=== PATIENT | female | born 1950 | race Caucasian/White ===

== ENCOUNTER 2020-01-01 11:20 | Observation (INO) | payer OTHER, MEDICARE ==
[2019-12-25 12:09] LABS: URINE BILIRUBIN NEGATIVE (Negative); URINE BLOOD NEGATIVE (Negative); URINE CLARITY CLEAR; URINE COLOR YELLOW; URINE GLUCOSE-RANDOM* NEGATIVE (Negative); URINE KETONES NEGATIVE (Negative); URINE LEUKOCYTES-REFLEX NEGATIVE (Negative); URINE NITRITE-REFLEX NEGATIVE (Negative); URINE PROTEIN (DIPSTICK) NEGATIVE (Negative); URINE UROBILINOGEN 0.2 E.U./dl (0.2-1.0)
[2019-12-25 12:12] LABS: HEMATOCRIT 40.1 % (37.0-47.0); HEMOGLOBIN 13.4 gm/dL (12.0-15.0); MCH 28.2 pg (26.0-34.0); MCHC 33.4 g/dL (28.0-37.0); MCV 84.3 fL (80.0-100.0); RBC 4.76 mil/uL (4.20-5.00); RDW 14.8 % (10.5-14.5); WBC 8.5 thou/uL (4.0-11.0)
[2019-12-25 12:25] LABS: ALBUMIN 3.9 g/dL (3.4-5.0); CALCIUM 8.7 mg/dL (8.5-10.1); CREATININE 1.2 mg/dL (0.6-1.0); POTASSIUM 4.6 mmol/L (3.5-5.1)
[2019-12-25 12:27] LABS: PROTIME 10.1 Seconds (9.3-11.4)
[2019-12-26 03:08] LABS: GLYCOHEMOGLOBIN (HGB A1C) 5.6 % (4.8-5.6)
--- NOTE | 2019-12-26 08:48 | EKG ---
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
[~2020-01-01] VITALS: Ht 157.5 cm; Wt 96.2 kg
[~2020-01-01 11:20] MED LIST: ACCOLATE20 MG PO; ALAWAY10 ML OPHTHALMIC; ALPRAZOLAM 0.0.25 MG PO; ASPIR 8181 M1 PO; CALCIUM 500 +1 EACH PO; CELEXA 20 MG TA20 MG PO; CONTRAVE ER 8-1 EACH PO; CRESTOR10 MG PO; LISINOPRIL-HCT1 EAC2 PO; MELOXICAM15 MG PO; METFORMIN HCL1000 MG PO; PROAIR HFA8.5 GM INH; ZYRTEC10 M4 PO
[2020-01-01 14:58] VITALS: BP 184/60
[2020-01-01 18:40] VITALS: BP 153/67
--- NOTE | 2020-01-01 18:46 | NUR ---
ASSUMED CARE OF THE PT AT 181. PT IS ON 2.0 L NC. L WRIST IV DRY AND INTACT. NO C/O PAIN SINCE PTS BEEN ON THE FLOOR. FALL PRECAUTIONS IN PLACE, BED IN THE LOWEST POSITION AND CALL LIGHT IS WITHIN REACH. WILL CONTINUE TO MONITOR THE PT.
[2020-01-01 19:04] VITALS: BP 148/73
[2020-01-01 20:00] VITALS: BP 148/73
--- NOTE | 2020-01-01 20:01 | NUR ---
PATIENT ADMITTED FROM OR WITH RIGHT TOTAL KNEE, ELIAN DRESSING, POLAR PACK, AND SCD'S IN PLACE. PATIENT DENIES PAIN AT THIS TIME. LEFT HAND IV WITH IV FLUIDS STARTED. PATIENT GIVEN BOX LUNCH AND CRACKERS, NO C/O NAUSEA AT THIS TIME. DAUGHTER CALLED AND UPDATE GIVEN BY ELVI/CIERA. WILL REPORT OFF TO KAYLI/CIERA.
[2020-01-02] VITALS: BP 136/70
[2020-01-02 03:45] VITALS: BP 136/70
--- NOTE | 2020-01-02 04:58 | NUR ---
ASSESSMENT: PT REMAIN ALERT AND ORIENT TIMES FOUR. STATES THAT HER RIGHT KNEE FEELS COMFORTABLE THUS FAR, NO REQUEST FOR PAIN MEDICATION. VSS, AFEBRILE. POLAR PK AND SCDS INTACT. NO FURTHER QUESTIONS. D5 0.45 NS TIMES 2 LITERS ONLY. PT IS ON 2ND LITER, MAY DC WHEN COMPLETED. GOOD PROGRESS TOWARDS DC GOALS, WILL CONTINUE TO MONITOR.
[2020-01-02 06:04] LABS: HEMATOCRIT 36.3 % (37.0-47.0); HEMOGLOBIN 11.9 gm/dL (12.0-15.0); MCH 27.9 pg (26.0-34.0); MCHC 32.7 g/dL (28.0-37.0); MCV 85.2 fL (80.0-100.0); RBC 4.26 mil/uL (4.20-5.00); RDW 14.4 % (10.5-14.5); WBC 14.4 thou/uL (4.0-11.0)
[2020-01-02 07:35] VITALS: BP 128/52
--- NOTE | 2020-01-02 13:18 | NUR ---
assessment: CM REVIEWED CHART AND SPOKE WITH PATIENT. PT IS ALERT AND ORIENTED X4. PT IS S/P RIGHT TKA. PT REPORTS SHE LIVES ALONE IN A HOUSE BUT HER 91 YR OLD MOTHER IS STAYING WITH HER AT THE TIME. PT REPORTS SHE HAS TWO STEPS TO ENTER THE HOME WITH A HANDRAIL BUT NO STEPS ONCE SHE IS INSIDE. PT REPORTS THAT SHE ALREADY HAS OUTPATIENT THERAPY SET UP AT [facility]. PHYSICAL THERAPY HAS BEEN WORKING WITH PATIENT AND SHE HAS BEEN DOING WELL BUT IS NEEDING A ROLLER WALKER FOR HOME. CM SPOKE WITH PT AND SHE HAS NO PREFERENCE OF [employer]. CM NOTIFIED [facility] WHO STATES THEY CAN PROVIDE PATIENT WITH A WALKER AND WILL DELIVER IT TO HER TODAY. PT REPORTS NO FURTHER NEEDS FROM [facility].
[2020-01-02 14:42] VITALS: BP 128/52
[2020-01-02 15:28] LABS: CALCIUM 8.1 mg/dL (8.5-10.1); CREATININE 1.4 mg/dL (0.6-1.0)
--- NOTE | 2020-01-02 19:47 | NUR ---
PT A&OX4, VSS, PAIN RIGHT KNEE. PATIENT WORKED PT/OT. PATIENT DISCHARGED HOME. NO SIGNS OF DISTRESS. ALL BELONGINGS WITH PATIENT, IV REMOVED.
--- NOTE | 2020-01-03 11:20 | O ---
[facility] [place] [address] OPERATIVE REPORT Name: BLANK PENNY Room #: 442-P [facility] Renan Aldana#: [id number] Admission: 01/01/20 Attend Phys: Tello Salvador MD Discharge: 01/02/20 Date of : 50 Report #: [id number] THIS REPORT FOR: cc: [facility] - Family physician unknown FAM - Family physician unknown Tello Salvador MD ~ CC: [facility] unknown DANILO ESCAMILLA Tello Salvador DATE OF SERVICE: 01/01/2020 PREOPERATIVE DIAGNOSIS: Right knee osteoarthritis. POSTOPERATIVE DIAGNOSIS: Right knee osteoarthritis. PROCEDURE: Right total knee arthroplasty using Navio robotic assistance. SURGEON: Tello Salvador MD. SITE PROMOTION AGENT: Smita Gomez PA-C. INDICATIONS FOR SITE PROMOTION AGENT: Throughout the case, extensive retraction and manipulation of the knee was required. This was afforded to me by my safety assistant. ANESTHESIA: LMA with an adductor canal block. IMPLANTS: Penny and Nephew size 5 Journey II BCS cobalt chrome femur, size 3 tibia, a size 11 polyethylene and size 29 patella. TOURNIQUET TIME: 54 minutes. ESTIMATED BLOOD LOSS: 25 mL. COMPLICATIONS: None. SPECIMENS: None. CONDITION UPON LEAVING THE OPERATING ROOM: Stable. INDICATIONS FOR PROCEDURE: The patient is a 69-year-old female with right knee osteoarthritis. She had failed conservative measures for this and after discussion with her, she elected for right total knee arthroplasty. DESCRIPTION OF PROCEDURE: Risks, benefits, alternatives, complications were discussed in detail with the patient including but not limited to risk of [facility] [address] [place] [address] OPERATIVE REPORT Name: DAYANABLANK Charles Room #: 442-P [facility] Renan Aldana#: [id number] Admission: 01/01/20 Attend Phys: Tello Salvador MD Discharge: 01/02/20 Date of : 50 Report #: [id number] anesthesia, risk of damage to nerves, arteries, blood vessels, risk for infection, bleeding, risk for continued knee pain, need for reoperation. Informed consent was obtained from the patient. The right knee was appropriately marked in the preoperative holding area. IV clindamycin was given for preoperative antibiotics. She was brought to the operating room and placed in supine position on operating room table. LMA anesthesia was induced without complication. Tourniquet was placed on the right thigh. Right lower extremity was prepped and draped in normal sterile fashion. Timeout was performed properly identifying the patient and procedure as well as the instrumentation and implants. All in the operating room were in agreement. Right lower extremity was exsanguinated, tourniquet was inflated. Tourniquet time was 54 minutes. Standard midline approach to the knee was made with 10 blade through the skin. Dissection was taken down sharply through the fascia and deep flaps were developed medially and laterally. Fresh 10 blade was used to make a medial parapatellar arthrotomy and the knee was inspected. There was severe tricompartmental osteoarthritis. ACL and PCL were removed sharply. Reference pins were placed in the femur and the tibia. The knee was then digitally mapped using the [employer] robotic system. Intraoperative plan was made. We sized the size 5 femur with a size 3 tibia and a size 10 spacer. After acceptance of the intraoperative plan, the distal femoral cut was made with a Navio bur. Distal femoral cutting block was then pinned and placed and the distal femoral cuts were made. Attention was then turned to the tibia. Remainder of the menisci were removed with Bovie cautery. Tibial resection guide was pinned in place using the Navio for placement and tibial resection was made. Flexion and extension gaps were then checked and found to have good balance in flexion and extension both medially and laterally. Tibia was sized, found to be a size 3. A size 3 tibial trial was placed, pinned and punched. A size 5 femoral trial was placed and the box cut was made. This was then trialed with a size 10 and then a size 11 polyethylene and size 11 polyethylene demonstrated 1-2 millimeter of laxity medially and laterally throughout range of motion both digitally as well as manually. After this, 9 mm was resected from the posterior surface of the patella and a size 29 patellar trial button was placed. Knee was taken through range of motion, found to be stable, found to have good patellar tracking. Trial components were removed. Bony ends were thoroughly irrigated with normal saline and final size 3 tibia, size 5 Journey II BCS cobalt chrome femur and a size 29 patella were cemented in place using standard cementation techniques. While the cement cured, a periarticular injection consisting of morphine, ropivacaine, epinephrine and Toradol was placed around the knee joint capsule. After the cement cured, the tourniquet was deflated. Hemostasis was obtained with Bovie cautery. Final size 11 polyethylene was placed. A gram of vancomycin was placed deep in the joint. The fascia was closed with 0 Vicryl, [facility] [address] [place] [address] OPERATIVE REPORT Name: BLANK PENNY Room #: 442-P [facility] Renan Aldana#: [id number] Admission: 01/01/20 Attend Phys: Tello Salvador MD Discharge: 01/02/20 Date of : 50 Report #: [id number] skin was closed with 2-0 Vicryl, skin staple and a ELIAN dressing was applied. The patient tolerated this procedure well. <ELECTRONICALLY SIGNED> By: Tello Salvador MD 01/03/20 1120 1729 1743 Tello Salvador MD /nt
== END 2020-01-02 17:37 | disposition short-term general hospital (02) ==
LOC: PRE 11:20 → 4S 13:06 → TBA 13:06 → PRE 15:05 → 4S 18:44
PROVIDERS: ADMIT Orthopaedic Surgery; ATTEND Orthopaedic Surgery
DX: M17.11 Unilateral primary osteoarthritis, right knee (principal)
CPT/HCPCS: 10102; 50010; 50101; 50415; 50954; 51130; 51225; 51320; 51412; 52001; 52282; 53000; 53078; 56527; 56528; 57095; 57103; 57110; 57127; 57180; 57952; 62110; 62900; 70005

== ENCOUNTER → 2020-04-30 | Outpatient (CLI) | payer OTHER, MEDICARE ==
[~2020-04-30] MED LIST changes: +ASA81BEC PO; +LISINOPRIL20 MG PO; +METFORMIN HCL500 M3 PO; +OXYBUTYNIN CHLO10 MG PO
== END ==
LOC: LAB 08:14
PROVIDERS: ATTEND Orthopaedic Surgery
DX: Z01.812 Encounter for preprocedural laboratory examination (principal); Z20.828 Contact with and (suspected) exposure to other viral communicable diseases

== ENCOUNTER 2020-05-04 10:27 | Observation (INO) | payer OTHER, MEDICARE ==
[2020-04-30 11:21] LABS: ABSOLUTE NEUTROPHILS 5.2 thou/uL (1.4-8.2); EOSINOPHILS 7.9 % (0.0-3.0); HEMOGLOBIN 12.7 gm/dL (12.0-15.0); LYMPHOCYTES 21.9 % (24.0-44.0); MCH 26.7 pg (26.0-34.0); MCHC 32.6 g/dL (28.0-37.0); MCV 81.9 fL (80.0-100.0); PLATELET COUNT 224 thou/uL (150-400); POLYS 63.2 % (36.0-66.0); RBC 4.76 mil/uL (4.20-5.00); RDW 15.2 % (10.5-14.5); WBC 8.2 thou/uL (4.0-11.0)
[2020-04-30 11:22] LABS: URINE BILIRUBIN NEGATIVE (Negative); URINE BLOOD NEGATIVE (Negative); URINE CLARITY CLEAR; URINE COLOR YELLOW; URINE GLUCOSE-RANDOM* NEGATIVE (Negative); URINE KETONES NEGATIVE (Negative); URINE NITRITE-REFLEX NEGATIVE (Negative); URINE PROTEIN (DIPSTICK) NEGATIVE (Negative); URINE SPECIFIC GRAVITY 1.015 (1.005-1.035); URINE UROBILINOGEN 0.2 E.U./dl (0.2-1.0)
[2020-04-30 11:34] LABS: URINE LEUKOCYTES-REFLEX 1+ (Negative)
[2020-04-30 11:36] LABS: PROTIME 10.4 Seconds (9.3-11.4)
[2020-04-30 11:37] LABS: ALBUMIN 3.8 g/dL (3.4-5.0); POTASSIUM 4.3 mmol/L (3.5-5.1)
[2020-04-30 11:38] LABS: BACTERIA-REFLEX 1-9 Few /HPF (None Seen); CASTS None Seen /LPF (None Seen); CRYSTALS None Seen /LPF (None Seen); SQUAMOUS 4-10 Moderate /LPF (0-3); URINE RBC 0-2 Rare /HPF (0-2); URINE WBC-REFLEX 0-5 Rare /HPF (0-5)
[2020-05-01 04:06] LABS: GLYCOHEMOGLOBIN (HGB A1C) 5.8 % (4.8-5.6)
[~2020-05-04] VITALS: Ht 157.5 cm; Wt 93.9 kg
--- NOTE | ~2020-05-04 | O ---
[facility] [place] [address] OPERATIVE REPORT Name: BLANK PENNY Room #: 435-P [facility] IN M.R.#: [id number] Admission: 05/04/20 Attend Phys: Tello Salvador MD Discharge: Date of : 50 Report #: [id number] THIS REPORT FOR: cc: DANILO ESCAMILLA Physician not on staff Tello Salvador MD ~ CC: DANILO ESCAMILLA Physician staff Tello Salvador DATE OF SERVICE: 05/04/2020 PREOPERATIVE DIAGNOSIS: Left knee osteoarthritis. POSTOPERATIVE DIAGNOSIS: Left knee osteoarthritis. PROCEDURE: Left total knee arthroplasty using Navio robotic assistant center director. SURGEON: Tello Salvador MD. EQUIPMENT MAINTENANCE TECHNICIAN: Smita Gomez PA-C. INDICATIONS FOR EQUIPMENT MAINTENANCE TECHNICIAN: Throughout the case, extensive retraction and manipulation of the knee was required. This was afforded to me by my assistant center director. ANESTHESIA: LMA with an adductor canal block. IMPLANTS: Penny [employer] Nephew size 4 Journey II BCS cobalt chrome femur, size 3 tibia, size 12 polyethylene and size 29 patella. TOURNIQUET TIME: 52 minutes. ESTIMATED BLOOD LOSS: 25 mL. COMPLICATIONS: None. SPECIMENS: None. CONDITION UPON LEAVING THE OPERATING ROOM: Stable. INDICATIONS FOR PROCEDURE: The patient is a 70-year-old female with severe left knee osteoarthritis. She had failed conservative measures for this and after discussion with her, she elected for left total knee arthroplasty. DESCRIPTION OF PROCEDURE: Risks, benefits, alternatives, complications were discussed in detail with the patient including but not limited to risk of [facility] [address] [address] OPERATIVE REPORT Name: BLANK PENNY Room #: 435-P [facility] M.R.#: [id number] Admission: 05/04/20 Attend Phys: Tello Salvador MD Discharge: Date of : 50 Report #: [id number] anesthesia, risk of damage to nerves or arteries, blood vessels, risk for infection, bleeding, risk for continued knee pain and need for reoperation. Informed consent was obtained from the patient. Left knee was appropriately marked in the preoperative holding area. IV Ancef was given for preoperative antibiotics. She was brought to the operating room and placed in supine position on operating room table. LMA anesthesia was induced without complication. Tourniquet was placed on the left thigh. Left lower extremity was prepped and draped in normal sterile fashion. Timeout was performed properly identifying the patient and procedure as well as the instrumentation. All in the operating room were in agreement. Left lower extremity was exsanguinated, tourniquet was inflated. Tourniquet time was 52 minutes. Standard midline approach to knee was made with 10 blade through the skin. Dissection was taken down sharply to the fascia. Deep flaps were developed medially and laterally. Fresh 10 blade was used to make a medial parapatellar arthrotomy and the knee was inspected. There was severe tricompartmental osteoarthritis. ACL and PCL were removed sharply. Reference pins were placed in the femur and the tibia. The knee was then digitally mapped using the Navio robotic system. Intraoperative plan was made and we sized the size 4 femur with a size 3 tibia and 10 spacer. After acceptance of the intraoperative plan, the distal femoral cut was made with a Navio bur. Distal femoral cutting block was pinned in place and distal femoral cuts were made. Attention was turned to the tibia. Remainder of the menisci removed with Bovie cautery. Tibial resection guide was pinned in place using the Navio for placement and tibial resection was made. Flexion and extension gaps were then checked and found to have good balance in flexion and extension both medially and laterally. Tibia was sized, found to be a size 3. A size 3 tibial trial was placed, pinned and punched. A size 4 femoral trial was placed and the box cut was made. This was then trialed with a size 10 up to a size 12 polyethylene and size 12 polyethylene demonstrated 1-2 millimeter of laxity medially and laterally throughout range of motion. A 9 mm was resected from the posterior surface of the patella and a size 29 patellar trial button was placed. Knee was taken through range of motion, found to be stable and have good patellar tracking. Trial components were removed. Bony ends were thoroughly irrigated with normal saline. A final size 3 tibia, size 4 Journey II BCS cobalt chrome femur and a size 29 patella were cemented in place using standard cementation techniques. While the cement cured, a periarticular injection consisting of morphine, ropivacaine, epinephrine and Toradol was placed around the knee joint capsule. After the cement cured, tourniquet was deflated. Hemostasis was obtained with Bovie cautery. Final size 12 polyethylene was placed. A gram of vancomycin was placed deep in the joint. The fascia was closed with 0 Vicryl, skin was closed with 2-0 Vicryl, skin staple and a ELIAN dressing was applied. The patient [address] [address] OPERATIVE REPORT Name: BLANK PENNY Room #: 435-P [facility] IN M.R.#: [id number] Admission: 05/04/20 Attend Phys: Tello Salvador MD Discharge: Date of : 50 Report #: [id number] tolerated this procedure well and went to recovery room under care of Anesthesia postoperatively. By: 1603 1630 Tello Salvador MD /nt
--- NOTE | 2020-05-04 16:38 | NUR ---
PT ARRIVED ON UNIT, AOX4, VSS. PT RATES PAIN 4/10 IN LEFT KNEE. PT IS TOLERATING ICE CHIPS, NO N/V AT THIS TIME. PT HAS POLAR PACK, ERVIN/SCD, ELIAN DRESSING CDI. PT HAS FALL PRECAUTIONS, NURSE EDUCATED TO USE CALL LIGHT. PAIN PILL RECEIVED FOR PAIN ORDERED. IV ON LEFT HAND IS PATENT WITH IV FLUIDS RUNNING. WILL CONTINUE TO MONITOR.
[2020-05-04 19:37] VITALS: BP 129/59
[2020-05-04 23:37] VITALS: BP 126/54
--- NOTE | 2020-05-05 02:34 | NUR ---
ASSESSED AT START OF SHIFT PT A&OX4. C/O MILD PAIN MANAGED WITH PO PAIN MED. IV INTACT AND FLUIDS INFUSING PT UP WITH ASSIST TO THE BSC. LEFT KNEE DRESSING C/D/I WITH ELIAN DRESSING, POLAR PACK AND SCD'S IN PLACE. FALL PREC INTACT AND CALL LIGHT IN REACH WILL CONT WITH POC TILL EOS.
[2020-05-05 02:55] VITALS: BP 144/61
[2020-05-05 06:02] LABS: HEMATOCRIT 32.5 % (37.0-47.0); HEMOGLOBIN 10.6 gm/dL (12.0-15.0); MCH 26.8 pg (26.0-34.0); MCHC 32.6 g/dL (28.0-37.0); MCV 82.1 fL (80.0-100.0); RBC 3.96 mil/uL (4.20-5.00); RDW 14.8 % (10.5-14.5); WBC 13.2 thou/uL (4.0-11.0)
--- NOTE | 2020-05-05 09:51 | NUR ---
ASSESSMENT: CM REVIEWED CHART AND MET WITH PATIENT AT THE BEDSIDE. PT IS ALERT AND ORIENTED X4. PT IS S/P LEFT TKA. PT REPORTS THAT SHE LIVES ALONE IN A HOUSE AND HAS A RAMP TO ENTER. PT REPORTS NO STEPS SHE HAS TO USE ONCE INSIDE. PT REPORTS HER MOTHER NORMALLY LIVES WITH HER BUT IS GOING TO STAY WITH HER BROTHER FOR A WHILE. PT REPORTS THAT SHE HAS A WALKER AT HOME SHE CAN USE. PT STATES THAT HER GRANDDAUGHTER IS GOING TO STAY WITH HER FOR A FEW DAYS AT DISCHARGE TO HELP ASSIST HER. PT REPORTS THAT SHE HAS OUTPATIENT THERAPY ARRANGED AT [facility] FOR TOMORROW. PT REPORTS SHE ALSO HAS ALOT OF [employer] MEM[employer]ERS WHO ARE SUPPORTIVE AND CAN ASSIST HER. PT DOES NOT ANTICIPATE HAVING ANY NEEDS FROM CM. PT IS TO WORK WITH THERAPY TODAY.
[2020-05-05 10:26] VITALS: BP 110/47
--- NOTE | 2020-05-05 12:05 | NUR ---
PT IS A&OX4, VSS, UP WITH ASSIST. PT IV IS REMOVED, DR RILEY NOTIFIED WITH ORDER TO CONTINUE TO MONITOR AND DO NOT RE-ENTER IV AND FLUIDS. PAIN CONTROLLED. PT WILL DISCHARGE HOME. FALL PRECAUTIONS IN PLACE, WILL CONTINUE TO MONITOR.
[2020-05-05 15:49] VITALS: BP 110/47
== END 2020-05-05 16:34 | disposition home or self-care (01) ==
LOC: PRE 10:27 → 4S 10:28 → TBA 10:28 → PRE 10:36 → 4S 15:43
PROVIDERS: ADMIT Orthopaedic Surgery; ATTEND Orthopaedic Surgery
DX: M17.12 Unilateral primary osteoarthritis, left knee (principal); M17.11 Unilateral primary osteoarthritis, right knee; I10 Essential (primary) hypertension; E78.5 Hyperlipidemia, unspecified; E11.9 Type 2 diabetes mellitus without complications; J45.909 Unspecified asthma, uncomplicated; F41.9 Anxiety disorder, unspecified; F32.9 Major depressive disorder, single episode, unspecified; Z85.3 Personal history of malignant neoplasm of breast; Z90.11 Acquired absence of right breast and nipple; Z79.899 Other long term (current) drug therapy
CPT/HCPCS: 27447; S2900; 10102; 50010; 50101; 50415; 50954; 51130; 51225; 51320; 51412; 53000; 53078; 56527; 56528; 57095; 57103; 57110; 57127; 57180; 58239; 62110; 62900; 70005